=== PATIENT | male | born 1985 | race African-American/Black ===

== ENCOUNTER 2021-03-16 19:09 | Emergency (ER) | payer BC ==
[~2021-03-16] VITALS: Ht 185.4 cm; Wt 100.0 kg
[~2021-03-16 19:09] MED LIST: AUGMENTIN 875-11 TAB PO; HYDROCODON-ACE1 EAC7 PO; IBUPROFEN600 MG PO
[2021-03-16 19:24] VITALS: BP 113/67; Ht 185.4 cm; Wt 100.0 kg
[2021-03-16] MEDS ORDERED: DICLOFENAC SODI50 MG PO (20:06)
== END 2021-03-16 20:35 | disposition home or self-care (01) ==
LOC: D.ER 19:09
DX: S76.911A Strain of unspecified muscles, fascia and tendons at thigh level, right thigh, initial encounter (principal); W19.XXXA Unspecified fall, initial encounter; Y93.9 Activity, unspecified; Y92.9 Unspecified place or not applicable